=== PATIENT | male | born 1965 | race American Indian/Alaskan Native ===

== ENCOUNTER 2019-06-05 04:53 | Emergency (ER) | payer BC ==
[2019-06-05 05:07] VITALS: BP 125/93
[2019-06-05] MEDS ORDERED: ATROVENT IH ONE (05:09)
[2019-06-05] MEDS ORDERED: PROVENTIL IH ONE (05:09)
--- NOTE | 2019-06-05 06:28 | XRay Report ---
CHEST PA AND LATERAL VIEWS INDICATION: Shortness of breath. COMPARISON: None. FINDINGS: Support devices: None. Heart: Within normal limits. Lungs/Pleura: No acute pulmonary or pleural findings. IMPRESSION: 1. No significant abnormality. Signer Name: Ancelmo Galindo MD Signed: 06/05/2019 6:23 AM Workstation Name: [id number]
--- NOTE | 2019-06-05 08:26 | Emergency Department Report ---
ED Asthma HPI - General Chief Complaint: Dyspnea/Respdistress Stated Complaint: ASTHMA Time Seen by Provider: 06/05/19 08:06 Source: patient Mode of arrival: Ambulatory Limitations: No Limitations - History of Present Illness Initial Comments: Patient is a 54-year-old Female with past medical history of asthma who is presenting with some mild shortness of breath. Patient states she's felt some shortness of breath and chest tightness for the last several days. Patient does not have a primary care physician and does not have an albuterol inhaler. P atient denies any fevers chills sore throat nausea vomiting or diarrhea at this time. Severity: mild Context: ran out of meds Associated Symptoms: dry cough. denies: productive cough, fever, chest pain, hemoptysis, leg edema, syncope - Related Data Previous Rx's Medication Instructions Recorded Last Taken Type ALBUTEROL Inhaler (OR & NICU) 2 puff IH QID PRN #1 inhalation 06/05/19 Unknown Rx [ProAir HFA Inhaler] Allergies Allergy/AdvReac Type Severity Reaction Status Date / Time No Known Allergies Allergy Unverified 06/05/19 05:08 ED Review of Systems ROS: Stated complaint: ASTHMA Other details as noted in HPI Comment: All other systems reviewed and negative ED Past Medical Hx - Past Medical History Hx Asthma: Yes - Surgical History Past Surgical History?: No - Social History Smoking Status: Never Smoker - Medications Home Medications: Home Medications Medication Instructions Recorded Confirmed Last Taken Type ALBUTEROL Inhaler (OR & NICU) 2 puff IH QID PRN #1 inhalation 06/05/19 Unknown Rx [ProAir HFA Inhaler] ED Physical Exam - General Limitations: No Limitations General appearance: alert, in no apparent distress - Head Head exam: Present: atraumatic, normocephalic - Eye Eye exam: Present: normal appearance - ENT ENT exam: Present: mucous membranes moist - Neck Neck exam: Present: normal inspection - Respiratory Respiratory exam: Present: normal lung sounds bilaterally. Absent: respiratory distress, wheezes (patient received a nebulized treatment from triage prior to examination. Patient's daughter wheezing.Was noted that the patient was wheezing before the albuterol treatment was given.), rales, rhonchi, stridor - Cardiovascular Cardiovascular Exam: Present: regular rate, normal rhythm. Absent: systolic murmur, diastolic murmur, rubs, gallop - GI/Abdominal GI/Abdominal exam: Present: soft, normal bowel sounds - Rectal Rectal exam: Present: deferred - Extremities Exam Extremities exam: Present: normal inspection - Back Exam Back exam: Present: normal inspection - Neurological Exam Neurological exam: Present: alert, oriented X3 - Psychiatric Psychiatric exam: Present: normal affect, normal mood - Skin Skin exam: Present: warm, dry, intact, normal color. Absent: rash ED Course Vital Signs 06/05/19 06/05/19 06/05/19 05:05 05:18 05:30 Temperature 97.8 F Pulse Rate 69 Pulse Rate [ 76 69 Throughout] Respiratory 20 Rate Respiratory 20 20 Rate [ Throughout] Blood Pressure 125/93 O2 Sat by Pulse 94 Oximetry 06/05/19 06:11 Temperature Pulse Rate 79 Pulse Rate [ Throughout] Respiratory 20 Rate Respiratory Rate [ Throughout] Blood Pressure O2 Sat by Pulse 91 Oximetry ED Medical Decision Making - Medical Decision Making Patient is a 54-year-old -[place]el[place] male presented with some mild wheezes. Shortness of breath. Patient has improved after albuterol treatment will be discharged home. Patient given albuterol inhaler. Critical care attestation.: If time is entered above; I have spent that time in minutes in the direct care of this critically ill patient, excluding procedure time. ED Disposition Clinical Impression: Asthma exacerbation Qualifiers: Asthma severity: mild Asthma persistence: intermittent Qualified Code(s): J45.21 - Mild intermittent asthma with (acute) exacerbation Disposition: -01 TO HOME OR SELFCARE Is pt being admited?: No Does the pt Need Aspirin: No Condition: Stable Instructions: Asthma (ED) Referrals: NINOSKA ZIMMER MD [Primary Care Provider] - 3-5 Days Time of Disposition: 08:25
== END 2019-06-05 09:01 | disposition home or self-care (01) ==
LOC: ED 04:53
DX: J45.901 Unspecified asthma with (acute) exacerbation (principal)
CPT/HCPCS: 71046; 94640